=== PATIENT | male | born 1950 | race African-American/Black ===

== ENCOUNTER 2025-03-13 15:28 | Emergency (ER) | payer OTHER, MEDICAID ==
[~2025-03-13] VITALS: Ht 182.9 cm; Wt 75.0 kg
[2025-03-13 15:35] VITALS: O2SAT 98
[2025-03-13 16:00] VITALS: BP 116/53; PULSE 56; RESP 10; TEMP 37.2; O2SAT 99
[2025-03-13 16:27] LABS: BASOPHILS % 0.3 % (0.0-2.0); EOSINOPHILS % 2.2 % (0.0-5.0); HEMATOCRIT. 40.1 % (42.0-52.0); HEMOGLOBIN. 13.2 g/dL (14.0-18.0); LYMPHOCYTES % 19.2 % (20.0-50.0); MEAN PLATELET VOLUME 8.6 fl (7.4-10.4); MONOCYTES % 7.2 % (2.0-8.0); NEUTROPHILS % 71.1 % (40.0-76.0); PLATELET 185 x1000/uL (130-400); RED BLOOD CELL COUNT 4.91 mill/uL (4.7-6.1); RED CELL DISTRIBUTION WIDTH 14.6 % (11.6-14.6)
[2025-03-13] MEDS: SODIUM CHLORIDE 0.9% 1,000 ML IV ONE (16:30)
[2025-03-13] MEDS: LIDOCAINE HCL/EPINEPHRINE 1%-EPI 1:100,000 20ML VIAL INFIL ONE (16:30)
[2025-03-13 16:44] LABS: CREATININE 1.1 mg/dL (0.6-1.3); UREA NITROGEN BLOOD 13 mg/dL (9-23)
[2025-03-13 16:45] LABS: TROPONIN I HIGH SENSITIVITY 19 ng/L (3.0-53)
[2025-03-13 16:46] LABS: ASPARTATE AMINOTRANSFERASE 15 IU/L (<34); BILIRUBIN DIRECT 0.3 mg/dL (<=3.0)
[2025-03-13 16:47] LABS: BILIRUBIN TOTAL 1.2 mg/dL (0.1-1.0); PROTEIN TOTAL 6.3 g/dL (6.0-8.3)
[2025-03-13 17:10] LABS: INR 1.0
== END 2025-03-13 19:14 | disposition left against medical advice (07) ==
LOC: ER 15:28 → CMPBEDREQ 03-14 22:28
DX: S01.111A Laceration without foreign body of right eyelid and periocular area, initial encounter (principal); M16.11 Unilateral primary osteoarthritis, right hip; R55 Syncope and collapse; Z79.899 Other long term (current) drug therapy; X58.XXXA Exposure to other specified factors, initial encounter; Y93.89 Activity, other specified; Y92.480 Sidewalk as the place of occurrence of the external cause; Y99.8 Other external cause status
CPT/HCPCS: 99285; 70450; 96360; 71045; 80076; 80048; 85025; 85610; 85730; 86850; 86900; 86901; 84484; 36415; 73552; 72192; 12013; 93005; J7030; A4606